=== PATIENT | female | born 1990 ===

== ENCOUNTER 2023-07-21 13:06 | Emergency (ER) | payer MEDICAID ==
[~2023-07-21] VITALS: Ht 154.9 cm; Wt 52.3 kg
[~2023-07-21 13:06] MED LIST: ASPIRIN 81M81 MG/TA2 PO; IBU800 M1 PO; PERCOCET 325 MG1 TA2 PO; PRENATAL
[2023-07-21 13:14] VITALS: TEMP 98.2
[2023-07-21 14:11] LABS: HEMATOCRIT 37.6 % (37.0-47.0); HEMOGLOBIN 12.7 g/dl (12.5-16.0); MEAN CELL VOLUME 82 fl (80.0-100.0); MEAN CORPUSCULAR HEMOGLOBIN 28 pg (27-31); MEAN CORPUSCULAR HGB CONC 34 g/dl (33.0-37.0); MEAN PLATELET VOLUME 10.9 fl (7.4-10.4); PLATELET COUNT 151 K/mm3 (130-400); RED BLOOD COUNT 4.57 M/mm3 (4.10-5.30); REDCELL DISTRIBUTION WIDTH-CV 12.4 % (11.5-14.5)
[2023-07-21 14:44] LABS: LYMPHOCYTE 39 % (20.0-51.0); NEUTROPHILS 47 % (42.0-75.2); PLATELET ESTIMATE NORMAL (NORMAL)
[2023-07-21 15:17] LABS: ALBUMIN 3.4 gm/dL (3.5-5.0); BILIRUBIN,TOTAL 0.4 mg/dL (0.2-1.2); CALCIUM 8.9 mg/dL (8.4-10.2); CREATININE, serum 0.65 mg/dL (0.57-1.11); TOTAL PROTEIN 7.4 gm/dL (6.2-8.1)
[2023-07-21 16:13] VITALS: BP 107/66; PULSE 60
== END 2023-07-21 16:22 | disposition home or self-care (01) ==
LOC: COL.ER 13:06
PROVIDERS: Personal Emergency Response Attendant
DX: O00.90 Unspecified ectopic pregnancy without intrauterine pregnancy (principal)
CPT/HCPCS: J9260